=== PATIENT | female | born 1930 | race Caucasian/White ===

== ENCOUNTER 2018-02-26 06:51 | Day surgery (SDC) | payer OTHER ==
[~2018-02-26 06:51] MED LIST: LYRICA50 MG PO; NORVASC5 MG PO; VALSARTAN-HCTZ1 EAC4 PO; VITAMIN D33000 UNIT PO; [UNRECOGNIZED DRUG - OTHER]
[2018-02-26] MEDS ORDERED: ULTRACET PO (10:55)
== END 2018-02-26 11:50 | disposition home or self-care (01) ==
LOC: CIR.AMB 06:51
DX: R15.9 Full incontinence of feces (principal)